=== PATIENT | male | born 1930 | race Caucasian/White ===

== ENCOUNTER 2018-03-12 18:18 | Emergency (ER) | payer MEDICARE, OTHER ==
[~2018-03-12] VITALS: Ht 160 cm; Wt 63.5 kg
[2018-03-12] MEDS ORDERED: NS 1000ml 1,900 ML IVLG ONE (19:00)
[2018-03-12 19:09] VITALS: BP 129/75
[2018-03-12 19:52] LABS: BASOPHILS % (AUTO) 1.2 % (0.0-2.0); EOSINOPHILS % (AUTO) 0.6 % (0.0-3.0); HEMATOCRIT 25.7 % (42.0-52.0); HEMOGLOBIN 8.7 G/DL (14.2-18.0); LYMPHOCYTES % (AUTO) 11.6 % (20.0-45.0); MEAN CORPUSCULAR VOLUME 94 FL (80-99); MONOCYTES % (AUTO) 10.2 % (1.0-10.0); NEUTROPHILS % (AUTO) 76.6 % (45.0-75.0); PLATELET COUNT 390 K/UL (150-450); RED BLOOD COUNT 2.75 M/UL (4.70-6.10); RED CELL DISTRIBUTION WIDTH 15.6 % (11.6-14.8); WHITE BLOOD COUNT 9.5 K/UL (4.8-10.8)
[2018-03-12 19:53] LABS: ANION GAP 9 mmol/L (5-15); BLOOD UREA NITROGEN 24 mg/dL (7-18); CALCIUM 8.4 MG/DL (8.5-10.1); CARBON DIOXIDE 22 MMOL/L (21-32); CHLORIDE 105 MMOL/L (98-107); CREATININE 0.8 MG/DL (0.55-1.30); POTASSIUM 4.5 MMOL/L (3.5-5.1); SODIUM 136 MMOL/L (136-145)
[2018-03-12 20:15] LABS: ALANINE AMINOTRANSFERASE 51 U/L (12-78); ALBUMIN/GLOBULIN RATIO 0.4 (1.0-2.7); ALKALINE PHOSPHATASE 128 U/L (46-116); ASPARTATE AMINO TRANSFERASE 143 U/L (15-37); BILIRUBIN,TOTAL 0.4 MG/DL (0.2-1.0); CKMB 8.1 NG/ML (0.0-3.6); CREATINE KINASE 1323 U/L (26-308)
[2018-03-12] MEDS ORDERED: LORazepam Inj 2mg/ml 1ml ONE (21:51)
[2018-03-12 22:08] VITALS: BP 124/78
[2018-03-12 22:24] LABS: APPEARANCE,URINE CLEAR; BILIRUBIN, URINE NEGATIVE (NEGATIVE); GLUCOSE, URINE (UA) NEGATIVE (NEGATIVE); KETONES,URINE NEGATIVE (NEGATIVE); LEUKOCYTE ESTERASE ,URINE NEGATIVE (NEGATIVE); NITRITE,URINE NEGATIVE (NEGATIVE); PH,URINE 6 (4.5-8.0); PROTEIN,URINE 1+ (NEGATIVE); UROBILINOGEN,URINE 1 MG/DL (0.0-1.0)
[2018-03-12 22:27] LABS: COLOR,URINE YELLOW
[2018-03-12] MEDS ORDERED: LORazepam Inj 2mg/ml 1ml IV ONE (22:30)
--- NOTE | 2018-03-12 23:30 | Emergency Room Report ---
History of Present Illness General Chief Complaint: Pain Source: Patient Present Illness HPI The patient states that he has all over back pain. He has a history of chronic back pain. Has a history of esophageal cancer that he has declined treatment for. The patient was just discharged from [facility] to a intermediate facility. He was very upset and did not like the intermediate facility and wants to go home. He has no other complaints. 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 Review of Systems All Other Systems: negative except mentioned in HPI Physical Exam Vital Signs Date Time Temp Pulse Resp B/P (MAP) Pulse Ox O2 Delivery O2 Flow Rate FiO2 03/12/18 18:12 99.3 96 20 131/66 97 Room Air 99.3 Sp02 EP Interpretation: reviewed, normal General Appearance: no apparent distress, alert, GCS 15, non-toxic, cachetic, Chronically Ill Head: normocephalic, atraumatic Eyes: bilateral eye normal inspection, bilateral eye PERRL ENT: hearing grossly normal, normal pharynx, no angioedema, normal voice Neck: full range of motion, supple/symm/no masses Respiratory: chest non-tender, lungs clear, normal breath sounds, no respiratory distress, no retraction, no accessory muscle use, speaking full sentences Cardiovascular #1: regular rate, rhythm, no edema Gastrointestinal: normal bowel sounds, non tender, soft, non-distended, no guarding, no rebound Rectal: deferred Musculoskeletal: normal range of motion, other - Pain in back w/ ROM Neurologic: alert, responsive, motor strength/tone normal, sensory intact, speech normal Psychiatric: judgement/insight normal, memory normal, mood/affect normal, no suicidal/homicidal ideation Skin: normal color, no rash, warm/dry, well hydrated Medical Decision Making Diagnostic Impression: Primary Impression: Chronic pain ER Course This patient has a known history of esophageal cancer. He is Com[facility] and not going to undergo treatment. Apparently, the patient does not like the intermediate facility that he is residing at and would like to go home. The patient's daughter was contacted and she states that she cannot care for him by herself. She states that she will work with her father and the intermediate facility to get him transferred to the house with home health care that she is unable to care for him on her own at this time in that he has to return to the intermediate facility. Likely this patient has metastatic cancer to his back. I did discuss the patient's labs with the patient's primary care physician Dr. Kyrie Aparicio and he states that the home health can be arranged from the intermediate facility. At this time, the patient does not require admission to an acute care hospital. He is returned to the intermediate facility. Laboratory Tests Test 03/12/18 19:25 03/12/18 21:08 03/12/18 21:55 White Blood Count 9.5 K/UL (4.8-10.8) Red Blood Count 2.75 M/UL (4.70-6.10) L Hemoglobin 8.7 G/DL (14.2-18.0) L Hematocrit 25.7 % (42.0-52.0) L Mean Corpuscular Volume 94 FL (80-99) Mean Corpuscular Hemoglobin 31.7 PG (27.0-31.0) H Mean Corpuscular Hemoglobin Concent 33.9 G/DL (32.0-36.0) Red Cell Distribution Width 15.6 % (11.6-14.8) H Platelet Count 390 K/UL (150-450) Mean Platelet Volume 6.3 FL (6.5-10.1) L Neutrophils (%) (Auto) 76.6 % (45.0-75.0) H Lymphocytes (%) (Auto) 11.6 % (20.0-45.0) L Monocytes (%) (Auto) 10.2 % (1.0-10.0) H Eosinophils (%) (Auto) 0.6 % (0.0-3.0) Basophils (%) (Auto) 1.2 % (0.0-2.0) Sodium Level 136 MMOL/L (136-145) Potassium Level 4.5 MMOL/L (3.5-5.1) Chloride Level 105 MMOL/L (98-107) Carbon Dioxide Level 22 MMOL/L (21-32) Anion Gap 9 mmol/L (5-15) Blood Urea Nitrogen 24 mg/dL (7-18) H Creatinine 0.8 MG/DL (0.55-1.30) Estimate Glomerular Filtration Rate mL/min (>60) Glucose Level 104 MG/DL (74-106) Lactic Acid Level 2.10 mmol/L (0.4-2.0) H 1.50 mmol/L (0.66-2.22) Calcium Level 8.4 MG/DL (8.5-10.1) L Total Bilirubin 0.4 MG/DL (0.2-1.0) Aspartate Amino Transferase (AST) 143 U/L (15-37) H Alanine Aminotransferase (ALT) 51 U/L (12-78) Alkaline Phosphatase 128 U/L (46-116) H Total Creatine Kinase 1323 U/L (26-308) H Creatine Kinase MB 8.1 NG/ML (0.0-3.6) H Creatine Kinase MB Relative Index 0.6 Troponin I 0.018 ng/mL (0.000-0.056) Total Protein 6.8 G/DL (6.4-8.2) Albumin 2.0 G/DL (3.4-5.0) L Globulin 4.8 g/dL Albumin/Globulin Ratio 0.4 (1.0-2.7) L Urine Color Yellow Urine Appearance Clear Urine pH 6 (4.5-8.0) Urine Specific [place] 1.020 (1.005-1.035) Urine Protein 1+ (NEGATIVE) H Urine Glucose (UA) Negative (NEGATIVE) Urine Ketones Negative (NEGATIVE) Urine Blood Negative (NEGATIVE) Urine Nitrite Negative (NEGATIVE) Urine Bilirubin Negative (NEGATIVE) Urine Urobilinogen 1 MG/DL (0.0-1.0) H Urine Leukocyte Esterase Negative (NEGATIVE) Urine RBC 0-2 /HPF (0 - 0) H Urine WBC 0-2 /HPF (0 - 0) Urine Squamous Epithelial Cells Few /LPF (NONE/OCC) Urine Bacteria Few /HPF (NONE) EKG Diagnostic Results Rate: normal Rhythm: NSR ST Segments: no acute changes Rhythm Strip Diag. Results EP Interpretation: yes Rate: 90's Rhythm: NSR, no PVC's, no ectopy Chest X-Ray Diagnostic Results Chest X-Ray Diagnostic Results : Chest X-Ray Ordered: Yes # of Views/Limited/Complete: 1 View Indication: Other Interpretation: other - elevated L. hemidiaphragm. Prominent lung markings. Impression: No acute disease Last Vital Signs Date Time Temp Pulse Resp B/P (MAP) Pulse Ox O2 Delivery O2 Flow Rate FiO2 03/12/18 22:08 99.3 82 20 124/78 98 Room Air 99.3 Status: improved Disposition: HOME, SELF-CARE Condition: Stable Referrals: Kyrie Aparicio MD (PCP) Greer Li DO Mar 12, 2018 23:30
[2018-03-12 23:39] VITALS: BP 128/87
[2018-03-13 00:05] VITALS: BP 143/66
--- NOTE | 2018-03-13 13:24 | Cardiology Report ---
APPROVED REPORT EKG Measurement Heart [id number] Normal sinus rhythm Normal ECG
--- NOTE | 2018-03-13 13:47 | Diagnostic Imaging Report ---
Indication: Chest pain Comparison: None A single view chest radiograph was obtained. Findings: Left hemidiaphragm is elevated. There is suggestion of mild vascular congestion. Bones are osteopenic. There is a stent projected over the right atrium. This could be within the ascending aorta/aortic valve region, and which case this would represent endovascular aortic valve. IMPRESSION: Suggestion of mild pulmonary vascular congestion Elevated left hemidiaphragm.
== END 2018-03-13 00:05 | disposition home or self-care (01) ==
LOC: EDBD 18:18 → EMR 19:08
DX: G89.29 Other chronic pain (principal); M54.9 Dorsalgia, unspecified; I10 Essential (primary) hypertension; K21.9 Gastro-esophageal reflux disease without esophagitis; M19.90 Unspecified osteoarthritis, unspecified site; Z85.01 Personal history of malignant neoplasm of esophagus; Z91.013 Allergy to seafood; Z91.018 Allergy to other foods
CPT/HCPCS: 36415; 71045; 80053; 81003; 82550; 82553; 83605; 84484; 85025; 87040; 93005; 96361; 96374; 99284